=== PATIENT | female | born 1985 | race Caucasian/White ===

== ENCOUNTER 2023-01-02 23:35 | Day surgery (SDC) | payer OTHER, SELFPAY ==
[2023-01-02 23:43] VITALS: BP 115/77; PULSE 78; RESP 18; TEMP 36.7; O2SAT 99
[2023-01-03] VITALS (18 sets, daily range): BP systolic 88–128; BP diastolic 50–87; PULSE 45–70; RESP 14–16; TEMP 36.2–37.2; O2SAT 97–100; BMI 23.0
--- NOTE | 2023-01-03 01:04 | CRLHL7_ITS ---
For Patients: As a result of the Century Cures Act, medical imaging exams and procedure reports are released immediately into your electronic medical record. You may view this report before your referring provider. If you have questions, please contact your health care provider. INDICATION: Right lower quadrant pain, vomiting TECHNIQUE: CT abdomen and pelvis acquired with 67 cc Omnipaque 350 IV contrast. Permanently recorded images are archived. COMPARISON: None. FINDINGS: Lower chest: Unremarkable. Liver: Unremarkable. Normal in size and attenuation. No suspicious masses. Gallbladder and bile ducts: Unremarkable. No stones or inflammation. No biliary dilatation. Pancreas: Unremarkable. No mass or inflammation. Spleen: Unremarkable. Normal in size. No masses. Adrenal glands: Unremarkable. No nodules. Kidneys, Ureters, and Bladder: Unremarkable. No suspicious masses, stones, or hydronephrosis. Unremarkable ureters and bladder. GI tract: Fecalization of the terminal ileum, implying slow transit state. Fluid-filled, dilated appendix measuring up to 9 mm, and containing 2 appendicoliths, best seen on series 4, image 41. There is no significant surrounding inflammatory changes. No evidence for perforation or adjacent abscess formation. Vasculature: Abdominal aorta is normal in caliber. Mesenteric arteries are patent. Prominent periuterine veins in the left pelvis. Lymph nodes: No lymphadenopathy. Peritoneum/Abdominal Wall: Unremarkable. No free air or significant free fluid. Pelvis: Unremarkable. Bones: Unremarkable for age. IMPRESSION: Dilated, fluid-filled appendix measuring up to 9 mm with 2 appendicoliths within the lumen. No significant surrounding inflammatory changes. Very early acute appendicitis cannot be excluded. Recommend clinical correlation. Fecalized terminal ileum, implying a slow transit state. Prominent periuterine veins in the left pelvis. This is nonspecific, but could be seen in the setting of pelvic congestion syndrome. Please note that all CT scans at this facility use dose modulation, iterative reconstruction, and/or weight-based dosing when appropriate to reduce radiation dose to as low as reasonably achievable. Dictated by Natan Nathan MD @ 01/03/2023 2:00:51 AM (Electronically Signed)
--- NOTE | 2023-01-03 01:09 | ED.GENADULT ---
HPI - General Adult General Chief complaint: Abdominal Pain Stated complaint: Abdominal Pain Time Seen by Provider: 01/03/23 00:52 Source: patient Mode of arrival: ambulatory Limitations: no limitations History of Present Illness HPI narrative: 37-year-old female presents the emergency department with 6 hour history of abdominal pain, located diffusely across the lower abdomen. Accompanied by nausea and multiple episodes of vomiting. No dysuria, no bloody urine. Last bowel movement was this evening, kind of loose but not memorable. Certainly nonbloody. Did not improve her symptoms. No prior history of similar symptoms. No prior history of abdominal surgeries. She did try taking some ibuprofen but threw it up right away. No fevers, no trauma or injury. Denies chance of . She is on oral contraceptive has not missed any doses. Her last menstrual period was over a month ago but she did start a new pack, skipping the placebo week and therefore would not have gotten a withdrawal bleed. She is on the 5th day of her new pack. No known history of ovarian pathology, no vaginal discharge. Pain is achy. Worse with taking a deep breath. No shortness of breath, chest pain or other systemic symptoms. Past medical history is benign per her report. No major long-term health problems, her only prescription medication is her oral contraceptive. Nonsmoker. ROS is notable for the GI symptoms only, otherwise denies times 12 systems. No personal history of cardiac disease, pulmonary disease, steroid use, anticoagulants or history of anesthesia complications. Related Data Allergies Allergy/AdvReac Type Severity Reaction Status Date / Time No Known Drug Allergies Allergy Verified 01/02/23 23:43 PFSH PFS Social History Smoking Status: Never smoker Non-prescribed substance use: denies use Exam Const: Vital Signs, click to edit/add: Vital Signs - 24 hr 01/02/23 23:43 Temperature 98.1 F Pulse Rate [Left P ulse Oximeter] 78 Respiratory Rate 18 Blood Pressure [Ri ght Upper Arm] 115/77 Pulse Oximetry 99 Oxygen Delivery Me thod Room Air Documenting provider has reviewed patient's vital signs: yes Common normals: no apparent distress and alert General appearance: cooperative and well kempt Other: Great historian, calm and cooperative. HENMT: Common normals: normocephalic Head and scalp: normocephalic Face and sinus: normal facial exam Mouth: oral and palatal mucosa normal Throat: posterior oropharynx normal Eye: Common normals: conjunctivae normal General eye: normal appearance of both eyes Conjunctiva: conjunctiva(e) normal Neck & C-Spine: General: normal visual inspection Resp: Common normals: normal respiratory effort, no use of accessory muscles and clear to auscultation bilaterally Effort & inspection: able to speak in complete sentences Auscultation: clear to auscultation bilaterally Cardio: Common normals: regular rate, regular rhythm, S1 normal heart sound, S2 normal heart sound and no murmurs Rate: regular rate Rhythm: regular rhythm Heart sounds: S1 normal and S2 normal GI: Common normals: Normal to inspection, nondistended, normoactive bowel sounds present, soft to palpation, no hepatosplenomegaly and no masses Palpation: soft and no hepatosplenomegaly Other: Tender to palpation the right lower quadrant. No rebound tenderness or guarding. No obvious mass. : Common normals: no CVA tenderness Bladder/kidney exam: no CVA tenderness Back & Pelvis: Common normals: no CVA tenderness Thoracic spine/upper back: normal to inspection Sacroiliac joints: SI joints normal Neuro: Sensorium/orientation: alert Speech: speech normal Motor exam: no tremor noted and no movement abnormalities noted Psych: Common normals: speech normal Appearance: well kempt Attitude: engaged Speech: normal speech Insight: insight good Judgement: judgment good Skin: Common normals: no rashes or lesions noted General skin exam: no rashes or lesions noted Course Course ED Course: Abdominal pain and vomiting. Differential diagnosis including appendicitis, ectopic , ovarian cyst, ovarian torsion, gastroenteritis, bowel obstruction, pancreatitis, gynecological infection, kidney stone, urine infection, among others. Strong his concern is for appendicitis. Recommend IV, Zofran, Toradol. Basic labs, urgent test and CT scan of the abdomen and pelvis. Patient agreeable to initial plan of care. Reevaluation(s) Time of Reevaluation #1: 02:21 Reevaluation #1: Reviewed CT and lab findings with patient. Suggestive of acute early appendicitis. Spoke with surgeon on-call, Dr. Singh. They are planning for appendectomy at 10:00 a.m.. She will arrange admission and antibiotics and IV fluids. Patient reports good pain control after Toradol and Zofran. Medically cleared for anesthesia at this time with no additional perioperative recommendations. Vital Signs Vital signs: Initial Vital Signs Temperature 98.1 F 01/02/23 23:43 Temperature Source Temporal Artery Scan 01/02/23 23:43 Pulse Rate 78 01/02/23 23:43 Pulse Rhythm Regular 01/02/23 23:43 Respiratory Rate 18 01/02/23 23:43 Blood Pressure 115/77 01/02/23 23:43 Blood Pressure Mean 89 01/02/23 23:43 Blood Pressure Position Sitting 01/02/23 23:43 Pulse Oximetry 99 01/02/23 23:43 Oxygen Delivery Method Room Air 01/02/23 23:43 Vital Signs Temperature 98.1 F 01/02/23 23:43 Pulse Rate 78 01/02/23 23:43 Respiratory Rate 18 01/02/23 23:43 Blood Pressure 115/77 01/02/23 23:43 Pulse Oximetry 99 01/02/23 23:43 Oxygen Delivery Method Room Air 01/02/23 23:43 Temperature 98.1 F 01/02/23 23:43 Pulse Rate 78 01/02/23 23:43 Respiratory Rate 18 01/02/23 23:43 Blood Pressure 115/77 01/02/23 23:43 Pulse Oximetry 99 01/02/23 23:43 Oxygen Delivery Method Room Air 01/02/23 23:43 Medical Decision Making Lab Data Lab results reviewed: Yes I reviewed the patient's lab results Lab results narrative: Leukocytosis, negative test, a little hemoconcentrated and dehydrated secondary to vomiting. Labs: Lab Results 01/03/23 01/03/23 01/03/23 Range/Units 00:00 01:19 01:25 WBC 14.64 H (4.50-11.00) K/uL RBC 4.18 (4.00-5.20) m/uL Hgb 13.1 (12.0-16.0) gm/dL Hct 38.8 (33.0-51.0) % MCV 93 (80-100) fL MCH 31 (26-34) pg MCHC 34 (32-36) gm/dL RDW Coeff of Cesia 11.8 (11.5-15.5) % Plt Count 297 (140-440) K/uL Neut % (Auto) 72.2 H (42.0-72.0) % Lymph % (Auto) 21.4 (20-44) % Walker % (Auto) 4.6 (0.0-11.0) % Eos % (Auto) 1.4 (0.0-7.0) % Baso % (Auto) 0.2 (0.0-3.0) % Neut # (Auto) 10.60 H (1.7-7.0) K/uL Lymph # (Auto) 3.10 H (0.90-2.90) K/uL Walker # (Auto) 0.70 (0.00-0.90) K/UL Eos # (Auto) 0.20 (0.00-0.50) K/uL Baso # (Auto) 0.00 (0.00-0.30) K/uL Abs Immat Gran (auto) 0.00 (0.00-0.30) K/uL Imm/Tot Granulo (auto) 0.2 % Sodium 138 (135-149) mmol/L Potassium 3.5 L (3.6-5.1) mmol/L Chloride 104 (96-114) mmol/L Carbon Dioxide 22 (20-32) mmol/L Anion Gap 12 (7-15) mEq/L BUN 13 (5-24) mg/dL Creatinine 0.7 (0.5-1.5) mg/dL Estimated GFR 113 ml/min Glucose 112 (60-115) mg/dL Calcium 8.7 (8.4-10.6) mg/dL Total Bilirubin 1.2 (0.1-1.5) mg/dL AST 20 (12-35) U/L ALT 10 (4-35) U/L Alkaline Phosphatase 46 (40-150) U/L C-Reactive Protein < 0.5 L (0.5-1.0) mg/dL Total Protein 7.3 (6.0-8.3) g/dL Albumin 4.1 (3.3-5.0) g/dL Lipase 57 (23-300) U/L Urine Color Yellow (Yellow) Urine Appearance Cloudy A (Clear) Urine pH 5.5 (5.0-8.5) Ur Specific [place] >= 1.030 (1.000-1.030) Urine Protein 2+ A (Negative) Urine Glucose (UA) Negative (Negative) Urine Ketones 2+ A (Negative) Urine Blood Negative (Negative) Urine Nitrite Negative (Negative) Urine Bilirubin Negative (Negative) Urine Urobilinogen 0.2 (0.2-1.0) Ur Leukocyte Esterase Negative (Negative) Urine RBC 0-2 (0-2) Urine WBC 5-10 A (0-5) Ur Squamous Epith Cells Few (None-Few) Amorphous Sediment Few A (None) Urine Bacteria Moderate A (None) Urine Mucus Moderate A (None) Urine HCG, Qual Negative (Negative) SARS-CoV-2 (PCR) Negative SARS-CoV-2 (Negative) Influenza Type A (PCR) Negative PCR FLU A (Negative) Influenza Type B (PCR) Negative PCR FLU B (Negative) RSV (PCR) Negative PCR RSV (Negative) Imaging Data CT scan - abdomen: Attestation: I have reviewed the pertinent imaging results. My impression: Looks like it acute appendicitis without free air or signs of rupture Radiologist's impression: IMPRESSION: Dilated, fluid-filled appendix measuring up to 9 mm with 2 appendicoliths within the lumen. No significant surrounding inflammatory changes. Very early acute appendicitis cannot be excluded. Recommend clinical correlation. Fecalized terminal ileum, implying a slow transit state. Prominent periuterine veins in the left pelvis. This is nonspecific, but could be seen in the setting of pelvic congestion syndrome. Discharge Plan Discharge Clinical Impression: Acute appendicitis Patient Disposition: Admitted As Observation
[2023-01-03] MEDS: ONDANSETRON 2 MG/ML inj 4 MG IVP (01:16)
[2023-01-03] MEDS: 0.9 % SODIUM CHLORIDE 1000 ml 1,000 ML IV (01:16)
[2023-01-03] MEDS: KETOROLAC 15 MG/ML inj IVP ×2 (01:17→11:32)
[2023-01-03 01:18] LABS: Basophils Percent Auto 0.2 % (0.0-3.0); Eosinophils Percent Auto 1.4 % (0.0-7.0); Hematocrit 38.8 % (33.0-51.0); Hemoglobin* 13.1 gm/dL (12.0-16.0); Immature Granulocytes Pct Auto 0.2 %; Lymphocytes Percent Auto 21.4 % (20-44); Mean Corpuscular HGB Conc 34 gm/dL (32-36); Mean Corpuscular Hemoglobin 31 pg (26-34); Mean Corpuscular Volume 93 fL (80-100); Monocytes Percent Auto 4.6 % (0.0-11.0); Neutrophils Percent Auto 72.2 % (42.0-72.0); Platelet Count* 297 K/uL (140-440); RDW Coefficient of Variation % 11.8 % (11.5-15.5); Red Blood Count 4.18 m/uL (4.00-5.20); White Blood Count* 14.64 K/uL (4.50-11.00)
[2023-01-03 01:19] LABS: Slide Review Reflex No
[2023-01-03 01:22] LABS: Albumin* 4.1 g/dL (3.3-5.0); Chloride* 104 mmol/L (96-114); Sodium* 138 mmol/L (135-149)
[2023-01-03 01:23] LABS: Potassium* 3.5 mmol/L (3.6-5.1)
[2023-01-03 01:25] LABS: Anion Gap 12 mEq/L (7-15); Aspartate Amino Transferase* 20 U/L (12-35); Bilirubin Total* 1.2 mg/dL (0.1-1.5); Carbon Dioxide* 22 mmol/L (20-32); Creatinine* 0.7 mg/dL (0.5-1.5); Estimated Glomerular Filt Rate 113 ml/min
[2023-01-03 01:26] LABS: Alanine Aminotransferase* 10 U/L (4-35); Alkaline Phosphatase* 46 U/L (40-150); Blood Urea Nitrogen* 13 mg/dL (5-24); Calcium* 8.7 mg/dL (8.4-10.6); Glucose* 112 mg/dL (60-115); Lipase* 57 U/L (23-300); Total Protein* 7.3 g/dL (6.0-8.3)
[2023-01-03 01:31] LABS: Appearance Urine Cloudy (Clear); Bilirubin Urine Negative (Negative); Blood Urine Negative (Negative); Color Urine Yellow (Yellow); Glucose Urine Negative (Negative); Ketones Urine 2+ (Negative); Leukocyte Esterase Urine Negative (Negative); Nitrite Urine Negative (Negative); Protein Urine 2+ (Negative); Specific Gravity Urine >= 1.030 (1.000-1.030); Urobilinogen Urine 0.2 (0.2-1.0); pH Urine 5.5 (5.0-8.5)
[2023-01-03 01:36] LABS: C Reactive Protein* < 0.5 mg/dL (0.5-1.0)
[2023-01-03 01:37] LABS: Ur HCG Qualitative* Negative (Negative)
[2023-01-03 01:41] LABS: Amorphous Sediment Urine Few; Bacteria Urine Moderate; RBC Urine 0-2 (0-2); Squamous Epithelial Cell Urine Few (None-Few)
[2023-01-03 01:42] LABS: Mucus Urine Moderate
[2023-01-03 02:01] LABS: PCR FLU A Negative PCR FLU A (Negative); PCR FLU B Negative PCR FLU B (Negative); PCR RSV Negative PCR RSV (Negative); SARS PCR* Negative SARS-CoV-2 (Negative)
[2023-01-03] MEDS: 0.9 % SODIUM CHLORIDE 1000 ml 1,000 ML 125 ML IV (03:34)
[2023-01-03] MEDS: ONDANSETRON 2 MG/ML inj IVP (03:34)
[2023-01-03] MEDS: PIPERACILLIN/TAZOBACTAM 3.375 GM in 0.9 % SODIUM CHLORIDE Mini-bag 100 ML IVPB ×2 (03:34→09:12)
--- NOTE | 2023-01-03 06:10 | PC.NURSE ---
Patient admitted to 262. Pleasant and cooperative. Afebrile. Rating pain in abdomen 3/10 and denies need for PRN pain medication at this time. PRN Zofran x1 for nausea. Up independently in room.
[2023-01-03] MEDS: HYDROmorphone 0.5 mg/0.5 ml inj IVP ×2 (06:21→09:11)
--- NOTE | 2023-01-03 10:58 | P.GSHP_ITS ---
History of Present Illness History of Present Illness Date Seen: 01/03/23 Chief complaint: Abdominal Pain Narrative: Silvana Esteban is a 37 year old female who presented to the emergency department with a one-day history lower right-sided abdominal pain. She has never had pain like this before. Throughout the day the pain started to get worse and was associated with nausea and vomiting. She also reports some diarrhea yesterday. Movement makes the pain worse, pain medications help. No fevers at home. She has never had surgery before. 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 Review of Systems Status of ROS: Reports: 10 or more systems reviewed and unremarkable except as noted in History and below PFSH PFSH Social History What is your current living situation?: I presently have a place to live Problems where you live: no known problems Problems where you live details: N/A In the past 12 months, utilities in danger of being shut off: no In past 12 months, lack of transportation kept you from medical appts, meetings, work, or getting things needed for daily living: no In the past 12 mos, have been you worried that your food would run out before you had money to buy more?: never true In the past 12 mos, the food you bought just didn't last and you didn't have money to buy more?: never true Highest level of school completed/degree received: Bachelor's degree Smoking Status: Never smoker Do you use any of these nicotine containing products: Vaping Products How often do you have a drink containing alcohol: 2-3 times a week AUDIT-C Alcohol total score: 3 Non-prescribed substance use: denies use Caffeine: Yes How often does anyone, including family, friends and others, physically hurt you : never How often does anyone, including family, friends and others, insult or talk down to you: never How often does anyone, including family, friends and others, threaten you with harm: never How often does anyone, including family, friends and others, scream or curse at you: never service: No Meds Home Medications and Allergies Home Medications Medication Instructions Recorded Confirmed Type norgestimate-ethinyl estradiol 1 tab PO DAILY 01/03/23 01/03/23 History 0.18 mg/0.215mg/0.25mg-35 mcg(28)tablet (Tri-Sprintec (28)) Allergies Allergy/AdvReac Type Severity Reaction Status Date / Time No Known Drug Allergies Allergy Verified 01/02/23 23:43 Exam Narrative: Exam Narrative: General: Alert and oriented, no acute distress Respiratory: Equal breath rise bilaterally, maintained on room air CV: Well perfused Abdomen: Soft, tender to palpation right lower quadrant with some guarding, no rebound. Const: Vital Signs, click to edit/add: Vital Signs - 24 hr 01/02/23 23:43 01/03/23 02:56 01/03/23 03:15 Temperature 98.1 F 98.4 F Pulse Rate [Left P ulse Oximeter] 78 70 66 Respiratory Rate 18 16 16 Blood Pressure [Le ft Arm] 125/67 Blood Pressure [Ri ght Upper Arm] 115/77 128/60 Pulse Oximetry 99 98 97 Oxygen Delivery Me thod Room Air Room Air Room Air 01/03/23 07:00 01/03/23 07:00 Temperature 98.4 F Pulse Rate [Left P ulse Oximeter] 68 68 Respiratory Rate 16 16 Blood Pressure [Le ft Arm] 127/87 Blood Pressure [Ri ght Upper Arm] Pulse Oximetry 97 Oxygen Delivery Me thod Room Air Results Results Labs: Leukocytosis (14.5) with left shift Abdomen CT scan report/results: report reviewed and image reviewed Assessment and Plan Assessment and plan (1) Acute appendicitis: Status: Acute Plan The patient presented with a history, exam and imaging findings consistent with acute appendicitis. I discussed the treatment options with the patient including non-surgical and surgical options. I recommended laparoscopic appendectomy. The risks of surgery were reviewed with the patient including the risks of bleeding, post-operative wound or intra-abdominal infection, injury to abdominal structures and possible conversion to an open operation. We also discussed anesthetic complications including TN, stroke, respiratory failure and blood clots. The patient voiced an understanding of our conversation, had the opportunity to ask questions, agreed to accept the risks of surgery and asked that we proceed with surgery. -OR for laparoscopic appendectomy -NPO, IV fluid -continue with IV Zosyn
--- NOTE | 2023-01-03 11:18 | W.ANESCHARGE ---
Anesthesia Charges Start Date/Time Anesthesia Start Date: 01/03/23 Anesthesia Start Time: 11:01 Stop Date/Time Anesthesia Stop Date: 01/03/23 Anesthesia Stop Time: 11:53 Summary Emergency: [employer]
[2023-01-03] MEDS: LACTATED RINGERS 1000 ML 1,000 ML 100 ML IV (11:20)
[2023-01-03] MEDS: BUPIVACAINE 0.25% 30 ML INJECTION (11:20)
--- NOTE | 2023-01-03 11:44 | PM.GSPRC ---
Operative Note Pre-op diagnosis: Acute appendicitis Post-op diagnosis: Same, non perforated Type of Procedure: Laparoscopic appendectomy Indications: Patient is a 37-year-old female with clinical workup and symptoms consistent with acute appendicitis. Risks and benefits of operative intervention were discussed at length with the patient. Risks included but was not limited to: Bleeding, infection, risk of damage to surrounding structures, possible need for additional procedures, possible need to convert to an open operation and postoperative complications such as pneumonia, pulmonary emboli or NC. All questions and concerns were addressed with the patient agreeing to proceed. Procedure Description: After discussing the risks and benefits of the procedure, the patient signed informed consent.? The operative site was marked and the patient was brought to the operating room and placed on the operating table in supine position.? Care was taken to pad the patient's pressure points.?? The patient was then intubated by anesthesia.?? The operative site was then prepped and draped in the usual sterile fashion.? A time-out was then performed. Entrance to the abdomen was obtained via a 5 mm optical trocar in the left upper quadrant. The abdomen was insufflated and briefly surveyed for any signs of injury. There were none. A 12 mm port was placed at the umbilicus as well as a 5 mm port in the left lower quadrant under direct vision. The patient was then placed in Trendelenburg position with the right side up. The small bowel was gently moved out of the way and the appendix was in view, covered in fibrinous exudate and adherent to the anterior abdominal wall. This was grasped and pulled into view. There was no evidence of perforation. A mesenteric window was created between the base of the appendix and the mesoappendix. A 30 mm Endo-ROXIE purple load stapler was then used to transect the appendix at its base. A 45 mm vascular load stapler was then used to take the mesoappendix. The staple lines were inspected for bleeding. There was none. The appendix was then removed from the abdomen using an Endo-Catch bag. The specimen was sent to pathology. The 12 mm port site fascia was closed with 0 Vicryl via the Erasmo-David. All other ports were closed under direct visualization. The skin was then closed with absorbable subcuticular suture. Sterile dressings were then applied. Instrument sponge and needle counts were correct at the end of the case. The patient was then woken and transported to the PACU in stable condition. Sterile dressings were then applied. ? The patient was then woken and transported to the recovery area in stable condition. ? The patient tolerated the procedure well. Findings: Acute appendicitis, non perforated Anesthesia: HUNGA Surgeon: Alma Rosa Singh MD Estimated blood loss (mL): 5 Specimen: Appendix Condition: stable Disposition: PACU Date of procedure: 01/03/23
--- NOTE | 2023-01-03 11:57 | W.ANESCHARGE ---
Anesthesia Charges Start Date/Time Anesthesia Start Date: 01/03/23 Anesthesia Start Time: 11:01 Stop Date/Time Anesthesia Stop Date: 01/03/23 Anesthesia Stop Time: 11:53 Summary Emergency: [employer]
[2023-01-03] MEDS: HYDROCODONE-ACETAMIN 5-325 MG 1 TAB PO (15:59)
--- NOTE | 2023-01-03 16:29 | P.DS_ITS ---
DS: Providers Provider Date Seen: 01/03/23 Primary care physician: Dalia Triana MD Attending Physician on discharge: Alma Rosa Singh MD DS: Summary Hospital Course Hospital Course: Patient was admitted from the emergency department with work up consistent with acute appendicitis. She was taken to the OR for a laparoscopic appendectomy, no evidence of perforation and no immediate complication from the procedure. At the time of discharge she was tolerating a regular diet, pain was well controlled, she was ambulating and voiding independently. Patient was discharged to home on POD0. Time Spent with Patient Time attestation: Total time spent providing and/or coordinating discharge services: Exam Narrative: Exam Narrative: Please see exam from same date. Const: Vital Signs, click to edit/add: Vital Signs - 24 hr 01/02/23 23:43 01/03/23 02:56 01/03/23 03:15 Temperature 98.1 F 98.4 F Pulse Rate Pulse Rate [Left P ulse Oximeter] 78 70 66 Respiratory Rate 18 16 16 Blood Pressure Blood Pressure [Le ft Arm] 125/67 Blood Pressure [Ri ght Upper Arm] 115/77 128/60 Pulse Oximetry 99 98 97 Oxygen Delivery Me thod Room Air Room Air Room Air 01/03/23 07:00 01/03/23 07:00 01/03/23 11:48 Temperature 98.4 F 98.9 F Pulse Rate 54 L Pulse Rate [Left P ulse Oximeter] 68 68 Respiratory Rate 16 16 14 Blood Pressure 88/55 L Blood Pressure [Le ft Arm] 127/87 Blood Pressure [Ri ght Upper Arm] Pulse Oximetry 97 98 Oxygen Delivery Ga thod Room Air Room Air 01/03/23 11:50 01/03/23 11:55 01/03/23 12:00 Temperature 98.8 F Pulse Rate 46 L 48 L 46 L Pulse Rate [Left P ulse Oximeter] Respiratory Rate 14 14 14 Blood Pressure 88/50 L 101/62 107/64 Blood Pressure [Le ft Arm] Blood Pressure [Ri ght Upper Arm] Pulse Oximetry 98 98 98 Oxygen Delivery Ga thod Room Air Room Air Room Air 01/03/23 12:05 01/03/23 12:10 01/03/23 12:15 Temperature 98.7 F Pulse Rate 49 L 52 L 53 L Pulse Rate [Left P ulse Oximeter] Respiratory Rate 14 14 14 Blood Pressure 106/68 106/66 108/66 Blood Pressure [Le ft Arm] Blood Pressure [Ri ght Upper Arm] Pulse Oximetry 97 98 97 Oxygen Delivery Me thod Room Air Room Air Room Air 01/03/23 12:30 01/03/23 12:45 01/03/23 13:00 Temperature 97.1 F L 97.3 F L Pulse Rate 45 L Pulse Rate [Left P ulse Oximeter] 50 L 62 Respiratory Rate 14 16 16 Blood Pressure Blood Pressure [Le ft Arm] 115/67 103/86 111/67 Blood Pressure [Ri ght Upper Arm] Pulse Oximetry 99 100 Oxygen Delivery Me thod Room Air Room Air Room Air 01/03/23 13:15 01/03/23 13:30 01/03/23 14:30 Temperature 98.2 F Pulse Rate Pulse Rate [Left P ulse Oximeter] 48 L 68 53 L Respiratory Rate 16 16 16 Blood Pressure Blood Pressure [Le ft Arm] 120/72 123/79 109/62 Blood Pressure [Ri ght Upper Arm] Pulse Oximetry 100 98 99 Oxygen Delivery Me thod Room Air Room Air Room Air 01/03/23 15:00 01/03/23 15:00 01/03/23 15:00 Temperature 98.2 F Pulse Rate Pulse Rate [Left P ulse Oximeter] 48 L 48 L 62 Respiratory Rate 16 16 16 Blood Pressure Blood Pressure [Le ft Arm] 106/65 106/68 Blood Pressure [Ri ght Upper Arm] Pulse Oximetry 99 99 Oxygen Delivery Me thod Room Air Room Air 01/03/23 15:30 Temperature Pulse Rate Pulse Rate [Left P ulse Oximeter] 48 L Respiratory Rate 16 Blood Pressure Blood Pressure [Le ft Arm] 106/65 Blood Pressure [Ri ght Upper Arm] Pulse Oximetry 99 Oxygen Delivery Me thod Room Air DS: Data Data Completed and Pending Labs on day of discharge: Labs from last 24 hours 01/03/23 01/03/23 01/03/23 01:25 01:19 00:00 WBC 14.64 H RBC 4.18 Hgb 13.1 Hct 38.8 MCV 93 MCH 31 MCHC 34 RDW Coeff of Cesia 11.8 Plt Count 297 Neut % (Auto) 72.2 H Lymph % (Auto) 21.4 M[place]ick % (Auto) 4.6 Eos % (Auto) 1.4 Baso % (Auto) 0.2 Neut # (Auto) 10.60 H Lymph # (Auto) 3.10 H M[place]ick # (Auto) 0.70 Eos # (Auto) 0.20 Baso # (Auto) 0.00 Abs Immat Gran (auto) 0.00 Imm/Tot Granulo (auto) 0.2 Sodium 138 Potassium 3.5 L Chloride 104 Carbon Dioxide 22 Anion Gap 12 BUN 13 Creatinine 0.7 Estimated GFR 113 Glucose 112 Calcium 8.7 Total Bilirubin 1.2 AST 20 ALT 10 Alkaline Phosphatase 46 C-Reactive Protein < 0.5 L Total Protein 7.3 Albumin 4.1 Lipase 57 Urine Color Yellow Urine Appearance Cloudy A Urine pH 5.5 Ur Specific [place] >= 1.030 Urine Protein 2+ A Urine Glucose (UA) Negative Urine Ketones 2+ A Urine Blood Negative Urine Nitrite Negative Urine Bilirubin Negative Urine Urobilinogen 0.2 Ur Leukocyte Esterase Negative Urine RBC 0-2 Urine WBC 5-10 A Ur Squamous Epith Cells Few Amorphous Sediment Few A Urine Bacteria Moderate A Urine Mucus Moderate A Urine HCG, Qual Negative SARS-CoV-2 (PCR) Negative SARS-CoV-2 Influenza Type A (PCR) Negative PCR FLU A Influenza Type B (PCR) Negative PCR FLU B RSV (PCR) Negative PCR RSV Preliminary micro results at discharge 01/03/23 Unknown Urine Culture - Preliminary Urine,Clean Catch Culture in Progress Discharge Plan Discharge Disposition: Home, Self-Care Discharging Surgeon: Alma Rosa Singh Follow-Up Appointment: Dr. Singh at [facility] 01/22/23 @ 3:15pm Prescriptions: New hydrocodone-acetaminophen 5-325 mg tablet 1 tab PO Q6H PRN (Reason: pain) Qty: 15 0RF senna 8.6 mg capsule 8.6 mg PO DAILY PRN (Reason: constipation) Qty: 90 0RF Continued norgestimate-ethinyl estradiol [Tri-Sprintec (28)] 0.18/0.215/0.25 mg-35 mcg (28) tablet 1 tab PO DAILY Activity Level: No strenuous activity Activity Detail: Activity as tolerated. Avoid strenuous activity. No lifting greater than 20 lb for 2 weeks. Discharge Diet: Regular Patient Instructions: Hydrocodone/Acetaminophen (By mouth), Senna (By mouth), General Anesthesia (DC), Laparoscopic Appendectomy (DC) Additional Instructions: You were prescribed a narcotic pain medication. In addition you may supplement with Tylenol and/or ibuprofen. Be sure to not exceed greater than 4 g of Tylenol in a 24 hour period. While on narcotic pain medicine please take stool softeners. A prescription of stool softeners has been sent to the pharmacy. Stop if having greater than 2 stools per day. You can start showering tomorrow. Do not soak in a bath or swim for 2 weeks. Follow up appointment with Dr. Singh at [facility]. Friday at 3:15pm. Forms: Work/School Release Follow-up: Dalia Triana MD [Primary Care Provider] - Discharge Orders: Discharge Order (Routine); Ordered 01/03/23 Ordered By: Alma Rosa Singh
--- NOTE | 2023-01-03 17:09 | PC.NURSE ---
Discharge Note: Pt returned from PACU alert, oriented, and able to verbalize needs. 3 lap sites well approximated and [employer] without drainage. Pain well controlled, one tab [place] given at 1630 for 4/10 abdominal pain. Ambulates with SBA and has voided post-op. Advanced to regular diet without difficulty. Pt was discharged to home via wheelchair in the care of her significant other at 1654. Pt verbalized understanding of discharge instructions and follow up appointments.
== END 2023-01-03 17:14 | disposition home or self-care (01) ==
LOC: ED 01-03 02:23 → SS 01-03 03:04 → MEDSURG 01-03 03:04
PROVIDERS: Emergency Provider Family Medicine; PCP Family Medicine; Visit Provider Surgery
PROC: 0DTJ4ZZ Resection of Appendix, Percutaneous Endoscopic Approach (ICD-10-PCS; CPT 44970; principal; 2023-01-03 10:40)
DX: K35.80 Unspecified acute appendicitis (principal)
CPT/HCPCS: 44970; 36415; 74177; 80053; 81003; 81015; 81025; 83690; 840; 85025; 86140; 87086; 87631; 88304; 99140; 99284; 99285; A9270; J0330; J0665; J1100; J1170; J1885; J2250; J2405; J2543; J2704; J2710; J3010; J7030; J7120; Q9967